=== PATIENT | female | born 1945 | race Caucasian/White ===

== ENCOUNTER 2017-03-20 17:23 | Emergency (ER) | payer MEDICARE ==
[~2017-03-20] VITALS: Ht 167.6 cm; Wt 102.1 kg
[~2017-03-20 17:23] MED LIST: ASPI-630 PO; ASPI1TAB30 PO; CARV6.252 PO; DIPH25CA58 PO; GLUC1TAB PO; LORA1TAB PO; LOSA1TAB18 PO; OMEG1CAP4 PO; VITA400T6 PO
--- NOTE | 2017-03-20 18:58 | RAD ---
CT HEAD, MAXILLOFACIAL AND CERVICAL SPINE WITHOUT CONTRAST History: 72-year-old female with fall, left-sided eye bruising and pain. Patient on blood thinners. Comparison: None. Procedure: Axial images are obtained of the head from the skull base through the vertex without IV contrast. Noncontrast helical CT of the facial bones and cervical spine was performed. Axial, sagittal, and coronal reconstructions were obtained. PQRS compliance statement: One or more of the following individualized dose reduction techniques were utilized for this examination: 1. Automated exposure control 2. Adjustment of the mA and/or kV according to patient size 3. Use of iterative reconstruction technique Head and Maxillofacial Findings: The ventricles and sulci are normal for the patient's age, with bifrontal atrophy present. No mass-effect, midline shift, hemorrhage or obvious acute infarction is identified. Mild periventricular and subcortical white matter low-attenuation is present, nonspecific although suggestive of chronic microvascular ischemic changes. Overlying calvarium is intact. Mastoid air cells are clear. Soft tissue swelling is present within the left periorbital region with hematoma formation present measuring 12 mm in AP thickness. No underlying facial bone fractures are seen. Globes and orbits are intact and unremarkable. The paranasal sinuses are clear without air-fluid level. Cervical Spine Findings: There is no evidence of acute fracture or dislocation. Normal cervical lordosis is maintained. Scattered degenerative changes are present throughout. Mild anterolisthesis of C4 on C5 is present, otherwise alignment is maintained. Vertebral body heights are maintained. Posterior elements are intact. Visualized soft tissues of the neck demonstrate no significant abnormalities. Coarse calcifications are seen within the right thyroid lobe, without a focal hypodense nodule seen. The visualized lung apices are clear. IMPRESSION: 1. No acute intracranial abnormality. 2. No acute fracture of the facial bones nor cervical spine. Left periorbital soft tissue hematoma. Electronically signed by: Radha Pedersen MD (03/20/2017 6:55 PM) [facility]
[2017-03-20] MEDS ORDERED: fentaNYL PF VIAL 100 MCG/2 ML VIAL IV PRN (19:00)
--- NOTE | 2017-03-20 19:19 | ED.ADGEN ---
Past Medical History Past Medical History: Cancer, High Cholesterol, Hypertension, Other Additional Past Medical Histor: Polycythemia, MYELOPROLIFERATIVE Past Surgical History: Hysterectomy, Tonsillectomy, Other Additional Past Surgical Histo: right ankle,R knee Alcohol Use: Rarely Drug Use: None Adult General Chief Complaint Chief Complaint: MECHANICAL FALL HPI HPI Patient is a 72 year old [woman, history of polycythemia, on blood thinners due to clot risk, including aspirin, history of hypertension, who presents to the emergency department with complaint of headache and facial pain after a mechanical fall. Patient states that she tripped an electrical cord in her garage, and fell striking her right hand, bilateral knees, and left forehead and nose. Patient states this occurred about 11:30 in the morning, denies a loss of consciousness but says she felt as though "my skull shifted". She denies any vision changes, any neck pain, any nausea, vomiting, weakness, numbness or tingling. States that she is taking all medications as directed, to take ibuprofen at home for pain, states pain did worsen, with significant swelling and bruising that developed over the left eye, with pain extending into the cheek, also in her bilateral knees, prompting her to come to the ED for evaluation after discussion with her physician. Patient denies any other injuries, any preceding symptoms, any chest pain, shortness breath, abdominal pain, recent travel, or ingestions or exposures. Review of Systems Review of Systems Constitutional: Denies fever or chills. [] Eyes: Denies change in visual acuity. [] HENT: Denies nasal congestion or sore throat. [] Respiratory: Denies cough or shortness of breath. [] Cardiovascular: Denies chest pain or edema. [] GI: Denies abdominal pain, nausea, vomiting, bloody stools or diarrhea. [] : Denies dysuria. [] Musculoskeletal: Denies back pain, pain in bilateral knees, right hip, right hand, and left side of the face Integument: Denies rash. [] Neurologic: Denies headache, focal weakness or sensory changes. [] Endocrine: Denies polyuria or polydipsia. [] Lymphatic: Denies swollen glands. [] Psychiatric: Denies depression or anxiety. [] Current Medications Current Medications Current Medications Medications (Trade) Dose Ordered Sig/Henrik Start Time Stop Time Status Last Admin Dose Admin Cyclobenzaprine HCl (Flexeril) 10 mg 1X ONCE 03/20/17 21:00 03/20/17 21:00 DC 03/20/17 20:51 10 MG Fentanyl Citrate (Fentanyl 2ml Vial) 25 mcg 1X ONCE 03/20/17 19:45 03/20/17 19:46 DC 03/20/17 19:44 25 MCG Naproxen (Naprosyn) 250 mg 1X ONCE 03/20/17 21:00 03/20/17 21:00 DC 03/20/17 20:51 250 MG Allergies Allergies Allergies Coded Allergies Type Severity Reaction Last Updated Verified No Known Drug Allergies 03/25/14 No Physical Exam Physical Exam Constitutional: Well developed, well nourished, no acute distress, significant contusions with swelling over the left eye, non-toxic appearance. C-collar in place. [] HENT: Normocephalic, patient was seen and bruising over the left eye with ecchymosis, visual acuity is intact, sclerae is clear, ocular motions are normal and painless, no temporal tenderness, no septal hematoma, no hemotympanum , no jaw tenderness or dental injury, bilateral external ears normal, oropharynx moist, no oral exudates, nose normal. [] Eyes: PERRLA, EOMI, conjunctiva normal, no discharge. [] Neck: Normal range of motion, no tenderness, supple, no stridor. [] Cardiovascular:Heart rate regular rhythm, no murmur, S1, S2, rubs or gallops. [] Lungs & Thorax: Bilateral breath sounds clear to auscultation , no wheezing, rhonchi, rales. No chest tenderness or crepitus. [] Abdomen: Bowel sounds normal, soft, rebound, rigidity, no guarding, no tenderness, no masses, no pulsatile masses. [] Skin: Warm, dry, no erythema, no rash. [] Back: No tenderness, no CVA tenderness. [] Extremities: Patient with significant swelling and ecchymosis across the anterior portion of both knees, does have flexion and extension with discomfort , pain also noted with axial loading of the right thumb, no significant swelling noted, no bony point tenderness or deformity., no cyanosis, no clubbing , ROM intact, no edema. [] Neurologic: Alert and oriented X 3, normal motor function, normal sensory function, no focal deficits noted. [] Psychologic: Affect normal, judgement normal, mood normal. [] Current Patient Data Vital Signs Vital Signs Date Time Temp Pulse Resp B/P (MAP) Pulse Ox O2 Delivery O2 Flow Rate FiO2 03/20/17 19:44 20 03/20/17 19:22 113 120/87 (98) 96 Room Air 03/20/17 17:49 98.0 98.0 EKG EKG Not indicated. [] Radiology/Procedures Radiology/Procedures [][facility] [address] [place] [address] IMAGING REPORT Signed PATIENT: ALMAZ HERNANDEZ ACCOUNT: [id number] : 1945 LOCATION: ER AGE: 72 SEX: F EXAM STATUS: REG ER ORD. PHYSICIAN: RONNI BROOKE DO REASON: Fall/facial/head contusion PROCEDURE: CT HEAD AND MAXILLOFACIAL WO CT HEAD, MAXILLOFACIAL AND CERVICAL SPINE WITHOUT CONTRAST History: 72-year-old female with fall, left-sided eye bruising and pain. Patient on blood thinners. Comparison: None. Procedure: Axial images are obtained of the head from the skull base through the vertex without IV contrast. Noncontrast helical CT of the facial bones and cervical spine was performed. Axial, sagittal, and coronal reconstructions were obtained. PQRS compliance statement: One or more of the following individualized dose reduction techniques were utilized for this examination: 1. Automated exposure control 2. Adjustment of the mA and/or kV according to patient size 3. Use of iterative reconstruction technique Head and Maxillofacial Findings: The ventricles and sulci are normal for the patient's age, with bifrontal atrophy present. No mass-effect, midline shift, hemorrhage or obvious acute infarction is identified. Mild periventricular and subcortical white matter low-attenuation is present, nonspecific although suggestive of chronic microvascular ischemic changes. Overlying calvarium is intact. Mastoid air cells are clear. Soft tissue swelling is present within the left periorbital region with hematoma formation present measuring 12 mm in AP thickness. No underlying facial bone fractures are seen. Globes and orbits are intact and unremarkable. The paranasal sinuses are clear without air-fluid level. Cervical Spine Findings: There is no evidence of acute fracture or dislocation. Normal cervical lordosis is maintained. Scattered degenerative changes are present throughout. Mild anterolisthesis of C4 on C5 is present, otherwise alignment is maintained. Vertebral body heights are maintained. Posterior elements are intact. Visualized soft tissues of the neck demonstrate no significant abnormalities. Coarse calcifications are seen within the right thyroid lobe, without a focal hypodense nodule seen. The visualized lung apices are clear. IMPRESSION: 1. No acute intracranial abnormality. 2. No acute fracture of the facial bones nor cervical spine. Left periorbital soft tissue hematoma. Electronically signed by: Jaime Pedersen MD (03/20/2017 6:55 PM) [facility] DICTATED and SIGNED BY: JAIME PEDERSEN MD DATE: 03/20/171845 CC: RONNI BROOKE DO; CHENTE GREGG MD ~ Impressions: [facility] [address] [place] [address] IMAGING REPORT Signed PATIENT: ALMAZ HERNANDEZ ACCOUNT: [id number] : 1945 LOCATION: ER AGE: 72 SEX: F EXAM STATUS: REG ER ORD. PHYSICIAN: RONNI BROOKE DO REASON: FALL, PAIN PROCEDURE: CT CERVICAL SPINE WO CONTRAST CT HEAD, MAXILLOFACIAL AND CERVICAL SPINE WITHOUT CONTRAST History: 72-year-old female with fall, left-sided eye bruising and pain. Patient on blood thinners. Comparison: None. Procedure: Axial images are obtained of the head from the skull base through the vertex without IV contrast. Noncontrast helical CT of the facial bones and cervical spine was performed. Axial, sagittal, and coronal reconstructions were obtained. PQRS compliance statement: One or more of the following individualized dose reduction techniques were utilized for this examination: 1. Automated exposure control 2. Adjustment of the mA and/or kV according to patient size 3. Use of iterative reconstruction technique Head and Maxillofacial Findings: The ventricles and sulci are normal for the patient's age, with bifrontal atrophy present. No mass-effect, midline shift, hemorrhage or obvious acute infarction is identified. Mild periventricular and subcortical white matter low-attenuation is present, nonspecific although suggestive of chronic microvascular ischemic changes. Overlying calvarium is intact. Mastoid air cells are clear. Soft tissue swelling is present within the left periorbital region with hematoma formation present measuring 12 mm in AP thickness. No underlying facial bone fractures are seen. Globes and orbits are intact and unremarkable. The paranasal sinuses are clear without air-fluid level. Cervical Spine Findings: There is no evidence of acute fracture or dislocation. Normal cervical lordosis is maintained. Scattered degenerative changes are present throughout. Mild anterolisthesis of C4 on C5 is present, otherwise alignment is maintained. Vertebral body heights are maintained. Posterior elements are intact. Visualized soft tissues of the neck demonstrate no significant abnormalities. Coarse calcifications are seen within the right thyroid lobe, without a focal hypodense nodule seen. The visualized lung apices are clear. IMPRESSION: 1. No acute intracranial abnormality. 2. No acute fracture of the facial bones nor cervical spine. Left periorbital soft tissue hematoma. Electronically signed by: Jaime Pedersen MD (03/20/2017 6:55 PM) [facility] DICTATED and SIGNED BY: JAIME PEDERSEN MD DATE: 03/20/17 184 CC: RONNI BROOKE DO; CHENTE GREGG MD ~ Bilateral knee x-ray: 4 view: Patient with significant degenerative changes, with soft tissue swelling, no evidence of large effusion, or bony abnormality identified. As interpreted by me. Right hand x-ray: Patient with degenerative changes noted, no fracture or soft tissue abnormalities identified. As interpreted by me. Course & Med Decision Making Course & Med Decision Making Pertinent Labs and Imaging studies reviewed. (See chart for details) Patient received pain medication the ED, imaging as above, no evidence of acute injury. Patient was ambulating without difficulty in the ED. Receive naproxen and cycle been screened in the ED, to contact her primary care tomorrow for follow-up. To return to the ED for any new or concerning symptoms as discussed. Discharged home in stable condition with family with plan as above. Dragon Disclaimer Dragon Disclaimer This electronic medical record was generated, in whole or in part, using a voice recognition dictation system. Departure Impression: Primary Impression: Head contusion Disposition: 01 HOME, SELF-CARE Condition: IMPROVED Scripts Cyclobenzaprine Hcl (CYCLOBENZAPRINE HCL) 10 Mg Tablet 10 MG PO TID Y for MUSCLE SPASMS for 12 Days, #36 TAB Prov: RONNI BROOKE DO 03/20/17 Naproxen (NAPROXEN) 250 Mg Tablet 250 MG PO PRN BID Y for PAIN, #10 Prov: RONNI BROOKE DO 03/20/17 RONNI BROOKE DO Mar 20, 2017 19:19
[2017-03-20 19:22] VITALS: BP 120/87
[2017-03-20] MEDS ORDERED: fentaNYL PF VIAL 100 MCG/2 ML VIAL IM ONE (19:45)
[2017-03-20] MEDS ORDERED: NAPR250T2 PO (20:20)
[2017-03-20] MEDS ORDERED: CYCL10TA2 PO (20:20)
[2017-03-20] MEDS ORDERED: NAPROXEN 250 MG TABLET PO ONE (21:00)
[2017-03-20] MEDS ORDERED: CYCLOBENZAPRINE 10 MG TABLET. PO ONE (21:00)
--- NOTE | 2017-03-21 08:14 | RAD ---
Indication fall, pain. AP oblique and lateral views of the right hand were obtained. No acute bony finding is seen. There are degenerative changes involving the hand. Degenerative changes are seen at all DIP joints and some of the PIP joints. IMPRESSION: Degenerative changes. No acute finding seen
--- NOTE | 2017-03-21 08:15 | RAD ---
Indication fall, pain. An AP view of the pelvis was obtained as well as targeted AP and frog leg views of the right hip. No bony abnormality is seen.
--- NOTE | 2017-03-21 08:23 | RAD ---
Indication fall, pain. AP oblique and lateral views of both knees were obtained. An additional sunrise view incorporating both knees was also obtained. Views of the right knee demonstrate minimal medial joint space compartment narrowing and moderate patellofemoral narrowing. Considerable soft tissue swelling is noted over the knee. No acute bony finding is seen. Views of the left knee demonstrate slight patellofemoral narrowing. No fracture is seen. IMPRESSION: No acute bony finding involving either knee
== END 2017-03-20 20:55 | disposition home or self-care (01) ==
LOC: ER 17:23
DX: S00.93XA Contusion of unspecified part of head, initial encounter (principal); S69.91XA Unspecified injury of right wrist, hand and finger(s), initial encounter; S89.92XA Unspecified injury of left lower leg, initial encounter; S89.91XA Unspecified injury of right lower leg, initial encounter; S09.92XA Unspecified injury of nose, initial encounter; E78.00 Pure hypercholesterolemia, unspecified; I10 Essential (primary) hypertension; W01.0XXA Fall on same level from slipping, tripping and stumbling without subsequent striking against object, initial encounter; Y93.89 Activity, other specified; Y99.8 Other external cause status; Y92.89 Other specified places as the place of occurrence of the external cause
CPT/HCPCS: 70450; 70486; 72125; 73130; 73502; 73564; 96372; 99284; J3010

== ENCOUNTER → 2017-07-04 | Outpatient (CLI) | payer MEDICARE ==
[~2017-07-04] MED LIST changes: -ASPI1TAB30 PO; +ASPI1TAB31 PO; +CYCL10TA2 PO; -LOSA1TAB18 PO; +LOSA1TAB25 PO; +NAPR250T6 PO
--- NOTE | 2017-07-04 14:01 | KCIC ---
DATE: 07/04/2017. EXAM: MAMMO JOSELUIS SCREENING BILATERAL. HISTORY: Routine mammographic screening. COMPARISON: 09/02/2011. This study was interpreted with the benefit of Computerized Aided Detection (CAD). FINDINGS: The breast parenchyma shows scattered fibroglandular densities. Breast parenchyma level B.. There are no suspicious masses, microcalcifications or architectural distortion. Coarse and secretory calcifications on the left greater than right have increased but appear benign. Parenchymal density is decreased. A nodule laterally on the right has a stable correlate on prior studies. BI-RADS CATEGORY: 2 BENIGN FINDING(S). RECOMMENDED FOLLOW-UP: 12M 12 MONTH FOLLOW-UP. PQRS compliance statement: Patient information was entered into a reminder system with a target due date 07/04/2018 for the next mammogram. Mammography is a sensitive method for finding small breast cancers, but it does not detect them all and is not a substitute for careful clinical examination. A negative mammogram does not negate a clinically suspicious finding and should not result in delay in biopsying a clinically suspicious abnormality. "Our facility is accredited by the [employer] Mammography Program."
== END | disposition home or self-care (01) ==
LOC: KCIC MAMMO 12:50
PROVIDERS: ATTEND Family Medicine
DX: Z12.31 Encounter for screening mammogram for malignant neoplasm of breast (principal)
CPT/HCPCS: 77063; G0202; 77067

== ENCOUNTER → 2018-10-31 | Outpatient (CLI) | payer MEDICARE ==
[~2018-10-31] MED LIST changes: +CARV6.2511 PO; -CARV6.252 PO
--- NOTE | 2018-10-31 17:00 | KCIC ---
Bilateral digital screening mammograms with 3-D tomosynthesis: Reason for examination: Routine screening. Comparison is made to previous studies dated 07/04/2017 and 09/02/2011. Bilateral mammograms in CC and oblique projections were obtained with 2-D imaging and 3-D tomosynthesis imaging on a Siemens Inspiration unit and reviewed on the workstation. Interpretation was made with the benefit of CAD. The skin and nipples show no abnormalities. No abnormal axillary lymph nodes are seen. The breast parenchyma shows scattered fatty and fibroglandular density. (Breast density: Category B.) There are no dominant masses, suspicious calcifications or architectural distortion. Benign calcifications are present. Impression: No evidence of malignancy. Recommend routine screening. BI-RAD Category 2: Benign. "Our facility is accredited by the [employer] Mammography [employer]." This patient's information has been entered into a reminder system for the patient to be notified with the results of her examination and a target date for the next mammogram. Electronically signed by: Kellen Domínguez MD (10/31/2018 4:57 PM) [id number]
== END | disposition home or self-care (01) ==
LOC: KCIC MAMMO 09:47
PROVIDERS: ATTEND Family Medicine
DX: Z12.31 Encounter for screening mammogram for malignant neoplasm of breast (principal); R92.8 Other abnormal and inconclusive findings on diagnostic imaging of breast
CPT/HCPCS: 77063; 77067

== ENCOUNTER → 2019-09-17 | Outpatient (CLI) | payer MEDICARE ==
--- NOTE | 2019-09-17 13:59 | RAD ---
EXAM: Thyroid Ultrasound INDICATION: Right thyroid nodule ? TECHNIQUE: Real-time ultrasound of the thyroid was performed with permanent freeze-frame documentation. COMPARISON: None available ? FINDINGS: THYROID: Thyroid gland is heterogeneous in echogenicity. ? Right Lobe: 5.0 x 1.8 x 2.0 cm. (Cc by AP by transverse) ? Left Lobe: 4.6 x 1.1 x 1.1 cm. ? Isthmus: 0.3 cm. ?? A dominant nodule in the inferior pole right thyroid lobe is present measuring 2.5 x 1.1 x 2.0 cm. Subjacent to that is an additional enlarged oval soft tissue nodule measuring 2.4 x 1.3 x 2.6 cm. The left thyroid lobe shows a nodule at the superior pole with internal coarse calcifications measuring 4.3 x 0.7 x 0.8 cm. There is an additional oval hypoechoic nodule in the inferior pole thyroid lobe with an echogenic center. It could represent a subjacent lymph node measuring 0.6 x 0.7 x 0.4 cm. ? OTHER: No obvious findings suggesting adjacent cervical adenopathy. ? IMPRESSION: ? 1. Bilateral thyroid nodules, dominant nodules being in the inferior pole right lobe and in the superior pole left lobe as described. There is in addition, a 2.5 cm oval mass subjacent to the right thyroid lobe that could represent a parathyroid nodule. 2. Recommend clinical correlation with biochemical markers and consideration of fine-needle aspiration biopsy of the dominant nodules in both thyroid lobes and possibly of the nodule subjacent to the right thyroid lobe. Electronically signed by: Zakia Fitch MD (09/17/2019 1:55 PM) [facility]
== END | disposition home or self-care (01) ==
LOC: US 06:58
PROVIDERS: ATTEND Internal Medicine Hematology & Oncology
DX: E04.2 Nontoxic multinodular goiter (principal)
CPT/HCPCS: 76536

== ENCOUNTER → 2020-06-11 | Outpatient (CLI) | payer MEDICARE ==
--- NOTE | 2020-06-11 16:30 | KCIC ---
Bilateral digital screening mammograms with 3-D tomosynthesis: Reason for examination: Routine screening. Comparison is made to previous studies dated back to 07/04/2017. Bilateral mammograms in CC and oblique projections were obtained with 2-D imaging and 3-D tomosynthesis imaging on a Siemens Inspiration unit and reviewed on the workstation. Interpretation was made with the benefit of CAD. The skin and nipples show no abnormalities. No abnormal axillary lymph nodes are seen. The breast parenchyma shows scattered fatty and fibroglandular density. (Breast density: Category B.) There are small nodular parenchymal densities bilaterally which are stable. There are no new dominant masses, suspicious calcifications or architectural distortion. Benign calcifications are present. Impression: No evidence of malignancy. Recommend routine screening. BI-RAD Category 2: Benign. "Our facility is accredited by the [employer] Mammography Program." This patient's information has been entered into a reminder system for the patient to be notified with the results of her examination and a target date for the next mammogram. Electronically signed by: Kellen Domínguez MD (06/11/2020 4:28 PM) [id number]
== END ==
LOC: KCIC MAMMO 13:52
PROVIDERS: ATTEND Family Medicine
DX: Z12.31 Encounter for screening mammogram for malignant neoplasm of breast (principal)
CPT/HCPCS: 77063; 77067

== ENCOUNTER → 2021-09-23 | Outpatient (CLI) | payer SELFPAY ==
[~2021-09-23] MED LIST changes: +CYCL10TA19 PO; -CYCL10TA2 PO; +NAPR-699 PO; -NAPR250T6 PO
[2021-09-23 11:20] LABS: BASO # 0.1 x10^3/uL (0.0-0.2); BASO % 1 % (0-3); EOS % 0 % (0-3); HEMATOCRIT 40.7 % (36.0-47.0); HEMOGLOBIN 12.9 g/dL (12.0-15.5); LYMPH # 1.2 x10^3/uL (1.0-4.8); LYMPH % 8 % (24-48); MEAN CORPUSCULAR HEMOGLOBIN 27 pg (25-35); MEAN CORPUSCULAR HGB CONC 32 g/dL (31-37); MEAN CORPUSCULAR VOLUME 87 fL (79-100); MONO # 2.4 x10^3/uL (0.0-1.1); MONO % 15 % (0-9); NEUT # 12.4 x10^3/uL (1.8-7.7); NEUT % 77 % (31-73); PLATELET COUNT 137 x10^3/uL (140-400); RED BLOOD COUNT 4.71 x10^6/uL (3.50-5.40); RED CELL DISTRIBUTION WIDTH 16.2 % (11.5-14.5); WHITE BLOOD COUNT 16.2 x10^3/uL (4.0-11.0)
[2021-09-23 11:25] LABS: CALCIUM 8.5 mg/dL (8.5-10.1); CREATININE 0.8 mg/dL (0.6-1.0); GFR 70.1; POTASSIUM 3.8 mmol/L (3.5-5.1)
[2021-09-23 11:31] LABS: ALBUMIN/GLOBULIN RATIO 1.3 (1.0-1.7); TOTAL BILIRUBIN 0.5 mg/dL (0.2-1.0); TOTAL PROTEIN 7.2 g/dL (6.4-8.2)
[2021-09-23 12:58] LABS: % BANDS 3 % (0-9); % BASOS 3 % (0-3); % LYMPHS 14 % (24-48); % MONOS 9 % (0-10); % SEGS 71 % (35-66); PLT ESTIMATE DECREASED (ADEQUATE)
== END ==
LOC: ONCLAB 11:03
PROVIDERS: ATTEND Internal Medicine Hematology & Oncology
DX: D45 Polycythemia vera (principal)
CPT/HCPCS: 36415; 80053; 83615; 85007; 85025

== ENCOUNTER → 2021-10-20 | Outpatient (CLI) | payer MEDICARE ==
[2021-10-20 13:40] LABS: BASO # 0.1 x10^3/uL (0.0-0.2); BASO % 0 % (0-3); EOS % 0 % (0-3); HEMATOCRIT 42.9 % (36.0-47.0); HEMOGLOBIN 13.5 g/dL (12.0-15.5); LYMPH # 0.8 x10^3/uL (1.0-4.8); LYMPH % 5 % (24-48); MEAN CORPUSCULAR HEMOGLOBIN 28 pg (25-35); MEAN CORPUSCULAR HGB CONC 32 g/dL (31-37); MEAN CORPUSCULAR VOLUME 88 fL (79-100); MONO # 1.8 x10^3/uL (0.0-1.1); MONO % 10 % (0-9); NEUT # 15.8 x10^3/uL (1.8-7.7); NEUT % 85 % (31-73); PLATELET COUNT 157 x10^3/uL (140-400); RED BLOOD COUNT 4.88 x10^6/uL (3.50-5.40); RED CELL DISTRIBUTION WIDTH 16.8 % (11.5-14.5); WHITE BLOOD COUNT 18.6 x10^3/uL (4.0-11.0)
[2021-10-20 14:13] LABS: CALCIUM 9.8 mg/dL (8.5-10.1); CREATININE 0.9 mg/dL (0.6-1.0); GFR 61.2; POTASSIUM 4.2 mmol/L (3.5-5.1)
[2021-10-20 14:18] LABS: ALBUMIN 4.2 g/dL (3.4-5.0); ALBUMIN/GLOBULIN RATIO 1.3 (1.0-1.7); TOTAL BILIRUBIN 0.6 mg/dL (0.2-1.0); TOTAL PROTEIN 7.4 g/dL (6.4-8.2)
[2021-10-20 15:00] LABS: % ATYL 3 % (0-0); % BANDS 12 % (0-9); % BASOS 1 % (0-3); % LYMPHS 3 % (24-48); % MONOS 7 % (0-10); % SEGS 74 % (35-66); OVALOCYTES FEW; PLT ESTIMATE ADEQUATE (ADEQUATE); POLYCHROMASIA SLIGHT
== END ==
LOC: ONCLAB 12:41
PROVIDERS: ATTEND Internal Medicine Hematology & Oncology
DX: D45 Polycythemia vera (principal)
CPT/HCPCS: 36415; 80053; 83615; 85007; 85025

== ENCOUNTER → 2021-11-22 | Outpatient (CLI) | payer MEDICARE, OTHER ==
[2021-11-22 15:29] LABS: BASO # 0.1 x10^3/uL (0.0-0.2); BASO % 1 % (0-3); EOS % 0 % (0-3); HEMATOCRIT 41.9 % (36.0-47.0); HEMOGLOBIN 13.8 g/dL (12.0-15.5); LYMPH # 1.1 x10^3/uL (1.0-4.8); LYMPH % 7 % (24-48); MEAN CORPUSCULAR HEMOGLOBIN 29 pg (25-35); MEAN CORPUSCULAR HGB CONC 33 g/dL (31-37); MEAN CORPUSCULAR VOLUME 87 fL (79-100); MONO # 1.7 x10^3/uL (0.0-1.1); MONO % 12 % (0-9); NEUT % 81 % (31-73); PLATELET COUNT 191 x10^3/uL (140-400); RED BLOOD COUNT 4.83 x10^6/uL (3.50-5.40); RED CELL DISTRIBUTION WIDTH 16.6 % (11.5-14.5); WHITE BLOOD COUNT 14.9 x10^3/uL (4.0-11.0)
[2021-11-22 15:45] LABS: CALCIUM 9.3 mg/dL (8.5-10.1); CREATININE 0.9 mg/dL (0.6-1.0); GFR 61.2; POTASSIUM 4.1 mmol/L (3.5-5.1)
[2021-11-22 15:52] LABS: ALBUMIN 4.4 g/dL (3.4-5.0); ALBUMIN/GLOBULIN RATIO 1.4 (1.0-1.7); TOTAL BILIRUBIN 0.6 mg/dL (0.2-1.0); TOTAL PROTEIN 7.6 g/dL (6.4-8.2)
== END ==
LOC: ONCLAB 14:32
PROVIDERS: ATTEND Internal Medicine Hematology & Oncology
DX: D45 Polycythemia vera (principal)
CPT/HCPCS: 36415; 80053; 83615; 85025

== ENCOUNTER → 2021-12-20 | Outpatient (CLI) | payer MEDICARE ==
[2021-12-20 14:26] LABS: BASO # 0.1 x10^3/uL (0.0-0.2); BASO % 0 % (0-3); EOS % 0 % (0-3); HEMATOCRIT 39.5 % (36.0-47.0); HEMOGLOBIN 13.1 g/dL (12.0-15.5); LYMPH # 0.8 x10^3/uL (1.0-4.8); LYMPH % 5 % (24-48); MEAN CORPUSCULAR HEMOGLOBIN 29 pg (25-35); MEAN CORPUSCULAR HGB CONC 33 g/dL (31-37); MEAN CORPUSCULAR VOLUME 87 fL (79-100); MONO # 1.7 x10^3/uL (0.0-1.1); MONO % 11 % (0-9); NEUT # 12.3 x10^3/uL (1.8-7.7); NEUT % 83 % (31-73); PLATELET COUNT 152 x10^3/uL (140-400); RED BLOOD COUNT 4.56 x10^6/uL (3.50-5.40); RED CELL DISTRIBUTION WIDTH 16.3 % (11.5-14.5); WHITE BLOOD COUNT 14.9 x10^3/uL (4.0-11.0)
[2021-12-20 14:37] LABS: GFR 54.2
[2021-12-20 14:51] LABS: ALBUMIN/GLOBULIN RATIO 1.3 (1.0-1.7); TOTAL BILIRUBIN 0.4 mg/dL (0.2-1.0); TOTAL PROTEIN 7.2 g/dL (6.4-8.2)
== END ==
LOC: ONCLAB 14:06
PROVIDERS: ATTEND Physician Assistant
DX: D45 Polycythemia vera (principal)
CPT/HCPCS: 36415; 80053; 83615; 85025